=== PATIENT | male | born 1990 | race Caucasian/White ===

== ENCOUNTER 2018-01-13 06:04 | Day surgery (SDC) | payer BC ==
[2018-01-12 11:27] VITALS: BMI 28.8
[2018-01-13] MEDS ORDERED: BUPIVACAINE HCL/PF 0.25% (2.5MG/ML) 10 ML VIAL ONE (07:19)
[2018-01-13] MEDS ORDERED: PAPAVERINE HCL 30 MG/1 ML 10 ML VIAL NR ONE (07:19)
[2018-01-13] MEDS ORDERED: PROPOFOL 20 ML ONE (07:56)
[2018-01-13] MEDS ORDERED: MIDAZOLAM HCL 2 MG/2 ML SINGLE DOSE VIAL ONE (07:56)
[2018-01-13] MEDS ORDERED: SCOPOLAMINE HYDROBROMIDE 1 PATCH PATCH.TD72 ONE (07:57)
[2018-01-13] MEDS ORDERED: ACETAMINOPHEN 1000 MG/100 ML VIAL (NON FORMULARY) IVPB ONE ×2 (08:05→09:45)
[2018-01-13] MEDS ORDERED: DEXAMETHASONE SOD PHOSPHATE 4 MG/1 ML VIAL ONE (08:11)
[2018-01-13] MEDS ORDERED: DEXTROSE 5%-0.45% SALINE 1,000 ML IV SCH (08:15)
[2018-01-13] MEDS ORDERED: CLINDAMYCIN PHOSPHATE 600 MG/4 ML VIAL IVPB ONE (08:23)
[2018-01-13] MEDS ORDERED: BUPIVACAINE HCL/PF 0.25% (2.5MG/ML) 10 ML VIAL IJ ONE (08:25)
[2018-01-13] MEDS ORDERED: CLINDAMYCIN PHOSPHATE 600 MG/4 ML VIAL ONE (08:29)
[2018-01-13] MEDS ORDERED: PROMETHAZINE HCL 25 MG/1 ML VIAL IVPUSH PRN (09:11)
[2018-01-13] MEDS ORDERED: ONDANSETRON 4 MG/2 ML VIAL IVPUSH PRN (09:11)
[2018-01-13] MEDS ORDERED: oxyCODONE HCL 5 MG TABLET PO PRN (09:11)
[2018-01-13] MEDS ORDERED: LACTATED RINGERS SOLUTION 1,000 ML IV SCH (09:15)
[2018-01-13] MEDS ORDERED: ACETAMINOPHEN INJECTION 100 ML IVPB ONE (09:47)
--- NOTE | 2018-01-13 09:54 | OP ---
DATE OF OPERATION: 01/13/2018 PREOPERATIVE DIAGNOSIS: Left varicocele. POSTOPERATIVE DIAGNOSIS: Left varicocele. PROCEDURE: Microscopic left varicocelectomy. ANESTHESIA: General with 0.5% Marcaine local. FINDINGS: Varicocele. SPECIMEN: Portion of varicocele. ESTIMATED BLOOD LOSS: 5 mL. PREOPERATIVE INDICATIONS: Patient is a 27-year-old male with a left varicocele. He comes to the OR for repair. DESCRIPTION OF PROCEDURE: Patient brought to the OR, placed on the table in supine position, given general anesthesia and IV antibiotics. The groin was shaved, prepped and draped sterilely. Timeout was performed. Incision was made over the superficial inguinal ring down to level of the cord. He has a history of having a hernia repair on this side, and the same incision was used. The cord was identified and brought out with a Brittany through the incision. A [place] drain was placed behind the cord. The vas deferens was from the cord, and the Ismael was repositioned. The cord was opened. Some small veins were seen. These were divided and ligated, and a portion of one was sent for histopathological diagnosis. Artery appeared to be pulsatile and not injured. Good hemostasis was maintained. At the end of the case, the artery and the vas deferens were intact. The cord was reduced back into the incision, and wound was closed in 2 layers with 3-0 and 4-0 suture. A microscope was used for the cord dissection. Kiki [id number]
[2018-01-13 10:30] VITALS: TEMP 98.3
[2018-01-13 11:15] VITALS: BP 115/68; PULSE 63
--- NOTE | 2018-01-16 18:01 | PATH ---
Surgical Pathology Report Patient Name: SOM TIERNEY Med. Rec. #: [id number] /Age/Gender: 1990 (Age: 27) / M Account: [id number] Location: [facility] Taken: 01/13/2018 Received: 01/13/2018 Reported: 01/16/2018 Physicians: Sherif Madison M.D. Specimen(s) Received LEFT VARICOCELE Clinical History Left varicocele Final Diagnosis VARICOCELE, LEFT, MICROSCOPIC VARICOCELECTOMY: FRAGMENT OF FIBROMUSCULAR TO FIBROVASCULAR TISSUE. Electronically Signed Sania Cowart M.D. Gross Description Received in formalin labeled "left varicocele," is a 0.7 cm in greatest dimension short arriaga soft tissue fragment. The specimen is submitted in toto in one cassette. 01/13/201801/13/2018
== END 2018-01-13 11:17 | disposition home or self-care (01) ==
LOC: JASU-SURG 06:04
PROVIDERS: ATTEND Urology
PROC: 0VBG0ZZ Excision of Left Spermatic Cord, Open Approach (ICD-10-PCS; principal; 2018-01-13 08:00)
DX: I86.1 Scrotal varices (principal)
CPT/HCPCS: 88304-TC; 94760; J0131